=== PATIENT | female | born 1965 | race Caucasian/White ===

== ENCOUNTER 2022-01-29 08:09 | Day surgery (SDC) | payer OTHER, SELFPAY ==
[2022-01-22 20:33] VITALS: BMI 29.2
--- NOTE | 2022-01-28 10:22 | HO.ANESPROP2 ---
Documented by User: Judy Vargas NP 01/28/22 10:23 HPI - Anesthesia Eval Consult details Narrative: 56yo F for Colonoscopy PMFSH Past Medical History Medical History Back pain Fibromyalgia Migraine Surgical History Surgical History H/O repair of right rotator cuff H/O tubal ligation S/P left knee arthroscopy Social History Social History Patient Tobacco Use Status: Never used Tobacco Use of substances other than those prescribed or required for medical reasons: No Are you DNR?: No Advance Directives: No Advance Directives Information Provided: No Advance Directives on File: No Recently lost weight without trying: No Nutrition Risks: No Nutritional Risk Patient : No Meds Allergies Allergy/AdvReac Type Severity Reaction Status Date / Time No Known Allergies Allergy Verified 01/22/22 20:24 Home Medications Medication Instructions Recorded Confirmed Last Taken Type ascorbic acid (vitamin C) 500 mg 500 mg PO DAILY 01/22/22 01/22/22 Unknown History tablet,extended release (Vitamin C ER) biotin 10,000 mcg capsule 10,000 mcg PO DAILY 01/22/22 01/22/22 Unknown History calcium carbonate 500 mg calcium 500 mg PO DAILY 01/22/22 01/22/22 Unknown History (1,250 mg) tablet elderberry fruit 200 mg capsule 50 mg PO DAILY 01/22/22 01/22/22 Unknown History gabapentin 600 mg tablet 600 mg PO BEDTIME 01/22/22 01/23/22 Unknown History meloxicam 15 mg tablet 1 tab PO DAILY 01/22/22 01/22/22 Unknown History multivitamin 1 tab PO DAILY 01/22/22 01/22/22 Unknown History zinc 50 mg tablet 50 mg PO DAILY 01/22/22 01/22/22 Unknown History gabapentin 600 mg tablet 600 mg PO DAILY@0730 PRN 01/23/22 01/23/22 Unknown History Exam Exam Date and Time: January 28, 2022 102 Height,Weight and Vital Signs: Height 5 ft 3 in Weight 74.843 kg Assessment and Plan Assessment Anesthesia Assessment: Chart Reviewed Documented by User: Sri Dumont MD 01/29/22 09:33 [facility] Past Medical History Medical History Back pain Fibromyalgia Migraine Surgical History Surgical History H/O repair of right rotator cuff H/O tubal ligation S/P left knee arthroscopy History of Problems with Anesthesia: No Social History Social History Patient Tobacco Use Status: Never used Tobacco Use of substances other than those prescribed or required for medical reasons: No Are you DNR?: No Advance Directives: No Advance Directives Information Provided: No Advance Directives on File: No Recently lost weight without trying: No Nutrition Risks: No Nutritional Risk Patient : No Meds Allergies Allergy/AdvReac Type Severity Reaction Status Date / Time No Known Allergies Allergy Verified 01/22/22 20:24 Home Medications Medication Instructions Recorded Confirmed Last Taken Type ascorbic acid (vitamin C) 500 mg 500 mg PO DAILY 01/22/22 01/22/22 Unknown History tablet,extended release (Vitamin C ER) biotin 10,000 mcg capsule 10,000 mcg PO DAILY 01/22/22 01/22/22 Unknown History calcium carbonate 500 mg calcium 500 mg PO DAILY 01/22/22 01/22/22 Unknown History (1,250 mg) tablet elderberry fruit 200 mg capsule 50 mg PO DAILY 01/22/22 01/22/22 Unknown History gabapentin 600 mg tablet 600 mg PO BEDTIME 01/22/22 01/23/22 Unknown History meloxicam 15 mg tablet 1 tab PO DAILY 01/22/22 01/22/22 Unknown History multivitamin 1 tab PO DAILY 01/22/22 01/22/22 Unknown History zinc 50 mg tablet 50 mg PO DAILY 01/22/22 01/22/22 Unknown History gabapentin 600 mg tablet 600 mg PO DAILY@0730 PRN 01/23/22 01/23/22 Unknown History Exam Airway Mallampati Class: II TM Dist: >3cm Neck ROM: Full Loose/Missing/Broken Teeth: No Heart: RRR Lungs: CTA Assessment and Plan Assessment Anesthesia Assessment: Anesthesia Plan Discussed Final Anesthetic Review History of Problems with Anesthesia: No NPO: Yes ASA Class: II Final Preanesthetic Review: Consent Obtained/Reviewed Patient Risk: Low Procedure Risk: Low Anesthetic Plan Anesthetic Plan: MAC: Disposition: Standard PACU
[2022-01-29 08:18] VITALS: BP 111/48; PULSE 98; RESP 18; TEMP 36.2; O2SAT 98
[2022-01-29] MEDS: Lactated Ringers 1,000 ML 100 ML IVCONT (08:36)
--- NOTE | 2022-01-29 09:23 | MHC.SHP ---
Pre-Procedural Eval Section A Date of Service: 01/29/22 The patient is an INPATIENT: No Changes since office visit: No Cold of Flu in the past 2 weeks, No New Medical Problems, No Changes in Medication and No Patient answered all questions The History & Physical has been completed within 30 days and I have reviewed it.: Yes Section B Chief Complaint: screening,hx of malignant neoplasm Allergies: Allergies Allergy/AdvReac Type Severity Reaction Status Date / Time No Known Allergies Allergy Verified 01/22/22 20:24 Plan I have reviewed the history and physical and performed a pertinent physical examination on my patient. No changes have occurred unless specified.
[2022-01-29 09:57] VITALS: BP 93/46; PULSE 66; RESP 18; TEMP 36.4; O2SAT 98
[2022-01-29 10:12] VITALS: PULSE 59; RESP 16; TEMP 36.4; O2SAT 99
--- NOTE | 2022-01-29 10:31 | P.BOP_ITS ---
Brief Operative Note Date of Service: 01/29/22 Pre-op diagnosis: screening Post-op diagnosis: same Procedure: colonoscopy Surgeon: Ramakrishna James Anesthesia: MAC Was an Pilot Can Router used for this Procedure?: No Estimated blood loss (mL): 0 Pathology: none sent Condition: stable Disposition: PACU
--- NOTE | 2022-01-29 20:17 | OP_ITS ---
SURGEON: Ramakrishna James MD INDICATIONS: Colon cancer screening and family history of colon cancer. PREOPERATIVE DIAGNOSIS: POSTOPERATIVE DIAGNOSIS: PROCEDURE PERFORMED: ESTIMATED BLOOD LOSS: COMPLICATIONS: ANESTHESIA: ASSISTANTS: SPECIMENS: PROCEDURE: Colonoscopy to the terminal ileum. MEDICATIONS: Monitored anesthesia care. DESCRIPTION OF PROCEDURE: History and physical performed, the risks and benefits of the procedure were explained to the patient. Informed consent was obtained. The patient was placed in the left lateral decubitus position. A digital rectal exam was performed and was found to be normal. The Olympus pediatric video colonoscope was introduced into the rectum and advanced to the cecum without difficulty. The cecum was identified by transillumination, palpation, and identification of ileocecal valve. Examination was performed. The scope was removed. She tolerated the procedure well and was transferred to recovery area in stable condition. FINDINGS: The terminal ileum was examined and appeared normal. The visualized colonic mucosa was normal. The quality of the prep was good. No polyps were identified. Retroflexed examination showed some moderate-sized internal hemorrhoids. IMPRESSION: Normal screening colonoscopy. RECOMMENDATION: 1. Follow up as needed. 2. Repeat colonoscopy is recommended in 5 years due to family history. MD CALVIN Coy/CAMPOS / [id number] MTDD
== END 2022-01-29 11:06 | disposition home or self-care (01) ==
PROVIDERS: PCP Family Medicine; Visit Provider Internal Medicine Gastroenterology
PROC: 0DJD8ZZ Inspection of Lower Intestinal Tract, Via Natural or Artificial Opening Endoscopic (ICD-10-PCS; CPT 45378; principal; 2022-01-29 09:20)
DX: Z12.11 Encounter for screening for malignant neoplasm of colon (principal); Z80.0 Family history of malignant neoplasm of digestive organs; K64.8 Other hemorrhoids; J30.2 Other seasonal allergic rhinitis; G43.909 Migraine, unspecified, not intractable, without status migrainosus; Z79.899 Other long term (current) drug therapy
CPT/HCPCS: 45378